=== PATIENT | female | born 1945 | race Hispanic/Latino ===

== ENCOUNTER 2019-03-14 17:04 | Emergency (ER) | payer MEDICARE ==
[~2019-03-14 17:04] MED LIST: ASPI-555 PO; CETI10CA5 PO; GLIP10TA9 PO; INSLAN SQ; LOSA50TA64 PO; METF-446 PO; MONT10TA21 PO; OMEP20CA10 PO; SIMV20TA2 PO
[2019-03-14 17:36] LABS: BASOPHILS % (AUTO) 0.5 % (0.0-5.0); EOSINOPHILS % (AUTO) 1.8 % (0.0-8.0); HEMATOCRIT 37.6 % (36-48); LYMPHOCYTES % (AUTO) 11.6 % (21.0-51.0); MEAN CORPUSCULAR HEMOGLOBIN 26.9 pg (27.0-33.0); MEAN CORPUSCULAR VOLUME 81.4 fL (79-99); MONOCYTES % (AUTO) 7.7 % (3.0-13.0); NEUTROPHILS % (AUTO) 78.4 % (40.0-77.0); NUCLEATED RED BLOOD CELLS 0.1 % (0.0-0.19); PLATELET COUNT (AUTO) 187 K/uL (130-400); RED BLOOD CELL COUNT(AUTO) 4.62 MIL/uL (4.00-5.50); RED CELL DISTRIBUTION WIDTH 17.3 % (11.0-15.5); WHITE BLOOD COUNT (AUTO) 6.5 K/uL (4.8-10.8)
[2019-03-14 17:36] LABS: APPEARANCE,URINE Clear (CLEAR); BILIRUBIN,URINE Negative (NEGATIVE); COLOR,URINE Yellow (YELLOW); GLUCOSE, URINE (UA) TRACE mg/dL (NEGATIVE); KETONES,URINE 15 mg/dL (NEGATIVE); LEUKOCYTE ESTERASE ,URINE Small (NEGATIVE); NITRATE,URINE Negative (NEGATIVE); OCCULT BLOOD,URINE Trace (NEGATIVE); PROTEIN,URINE Negative (NEGATIVE); UROBILINOGEN,URINE 0.2 mg/dL (0.2-1.0)
[2019-03-14 17:47] LABS: BACTERIA,URINE Rare /HPF (None Seen); RBC,URINE 0-1 /HPF (0-1); SQUAMOUS EPITHELIAL CELL,UR Rare /HPF (0-2); TRANSITIONAL EPI CELLS,URINE Rare /HPF (None Seen)
[2019-03-14 17:53] LABS: CREATININE 0.8 mg/dL (0.5-1.5); POTASSIUM 3.9 mmol/L (3.5-5.1)
[2019-03-14 18:00] LABS: ALBUMIN 3.3 g/dL (3.5-5.0); BILIRUBIN,TOTAL 0.4 mg/dL (0.2-1.0); TOTAL PROTEIN, SERUM 6.9 g/dL (6.0-8.3)
[2019-03-14] MEDS ORDERED: ONDANSETRON 4 MG TABLET ONE (18:21)
[2019-03-14] MEDS ORDERED: TRAMADOL HCL 50 MG TABLET ONE (18:22)
== END 2019-03-14 20:22 | disposition home or self-care (01) ==
LOC: EDH 17:04
DX: N30.00 Acute cystitis without hematuria (principal); R11.0 Nausea; J45.909 Unspecified asthma, uncomplicated; E11.9 Type 2 diabetes mellitus without complications; I10 Essential (primary) hypertension; E78.5 Hyperlipidemia, unspecified; Z88.1 Allergy status to other antibiotic agents; Z88.2 Allergy status to sulfonamides; Z86.73 Personal history of transient ischemic attack (TIA), and cerebral infarction without residual deficits; Z98.890 Other specified postprocedural states; Z79.899 Other long term (current) drug therapy
CPT/HCPCS: 36415; 74176; 80053; 81001; 85025; 99285; Q0162

== ENCOUNTER 2019-09-03 18:03 | Emergency (ER) | payer MEDICARE ==
[~2019-09-03 18:03] MED LIST changes: -OMEP20CA10 PO; +OMEP20CA12 PO
[2019-09-03] MEDS ORDERED: DEXAMETHASONE SOD PHOSPHATE 10MG/ML 1ML VIAL ONE (18:40)
[2019-09-03] MEDS ORDERED: OXYMETAZOLINE HCL SPRAY 15 ML BOTTLE ONE (18:41)
[2019-09-03] MEDS ORDERED: DiphenhydrAMINE HCL 50 MG/ML VIAL ONE (18:41)
[2019-09-03] MEDS ORDERED: KETOROLAC TROMETHAMINE 15MG/ML ONE (18:41)
[2019-09-03] MEDS ORDERED: SODIUM CHLORIDE 0.9% 1000ML 1,000 ML IV ONE (18:42)
[2019-09-03 19:19] LABS: BASOPHILS % (AUTO) 0.9 % (0.0-5.0); EOSINOPHILS % (AUTO) 0.9 % (0.0-8.0); HEMATOCRIT 39.4 % (36-48); LYMPHOCYTES % (AUTO) 22.9 % (21.0-51.0); MEAN CORPUSCULAR HEMOGLOBIN 28.8 pg (27.0-33.0); MEAN CORPUSCULAR HGB CONC 33.5 g/dL (32.0-36.0); MEAN CORPUSCULAR VOLUME 85.9 fL (79-99); MONOCYTES % (AUTO) 7.9 % (3.0-13.0); NEUTROPHILS % (AUTO) 67.4 % (40.0-77.0); PLATELET COUNT (AUTO) 205 K/uL (130-400); RED BLOOD CELL COUNT(AUTO) 4.59 MIL/uL (4.00-5.50); RED CELL DISTRIBUTION WIDTH 16.9 % (11.0-15.5); WHITE BLOOD COUNT (AUTO) 5.7 K/uL (4.8-10.8)
[2019-09-03 19:31] LABS: ALBUMIN 3.3 g/dL (3.5-5.0); BILIRUBIN,TOTAL 0.3 mg/dL (0.2-1.0); CREATININE 1.1 mg/dL (0.5-1.5); POTASSIUM 4.4 mmol/L (3.5-5.1); TOTAL PROTEIN, SERUM 7.1 g/dL (6.0-8.3)
[2019-09-03] MEDS ORDERED: INSULIN HUMULIN R 100 UNIT/ML 3ML ONE (20:11)
[2019-09-03 20:15] LABS: ABG OXYGEN SATURATION 30.9 % (95.0-99.0); BASE EXCESS,VENOUS BLOOD GAS -2.3 (-2.0-3.0); HCO3,VENOUS BLOOD GAS 23.4 (21.0-28.0); PCO2,VENOUS BLOOD GAS 43 (32-45)
== END 2019-09-03 22:50 | disposition home or self-care (01) ==
LOC: EDH 18:03
DX: E11.65 Type 2 diabetes mellitus with hyperglycemia (principal); R51 Headache; M54.2 Cervicalgia; I10 Essential (primary) hypertension; E78.5 Hyperlipidemia, unspecified; Z86.73 Personal history of transient ischemic attack (TIA), and cerebral infarction without residual deficits; Z88.2 Allergy status to sulfonamides; Z88.1 Allergy status to other antibiotic agents; Z90.49 Acquired absence of other specified parts of digestive tract; Z98.890 Other specified postprocedural states
CPT/HCPCS: 36415; 36600; 70450; 80053; 82010; 82803; 82948; 85025; 96374; 96375; 99285; J1100; J1200; J1815; J1885; J7030

== ENCOUNTER → 2022-01-01 | Outpatient (CLI) | payer MEDICARE ==
[~2022-01-01] MED LIST changes: -ASPI-555 PO; +ASPI-556 PO
== END | disposition home or self-care (01) ==
LOC: OIH 10:04
PROVIDERS: ATTEND Family Medicine
DX: M47.816 Spondylosis without myelopathy or radiculopathy, lumbar region (principal); M85.88 Other specified disorders of bone density and structure, other site; M54.10 Radiculopathy, site unspecified; Z90.49 Acquired absence of other specified parts of digestive tract; Z98.890 Other specified postprocedural states
CPT/HCPCS: 72100; 72220

== ENCOUNTER 2023-05-11 11:58 | Emergency (ER) | payer MEDICARE ==
[~2023-05-11] VITALS: Ht 154.9 cm; Wt 59.0 kg
[~2023-05-11 11:58] MED LIST changes: +AMLO-258 PO; +GLIP5TAB11 PO; -MONT10TA21 PO; -SIMV20TA2 PO; +STATIN PO; +UBID10CA6 PO
[2023-05-11 12:26] LABS: BASOPHILS # (AUTO) 0.03 K/uL (0.00-0.20); BASOPHILS % (AUTO) 0.5 % (0.0-5.0); EOSINOPHILS # (AUTO) 0.15 K/uL (0.00-0.70); EOSINOPHILS % (AUTO) 2.3 % (0.0-8.0); HEMATOCRIT 30.5 % (36-48); IMMATURE GRANULOCYTE ABSOLUTE 0.02 K/uL (0-1); LYMPHOCYTES # (AUTO) 1.5 K/uL (1.0-4.8); LYMPHOCYTES % (AUTO) 22.4 % (21.0-51.0); MEAN CORPUSCULAR HEMOGLOBIN 29.2 pg (27.0-33.0); MEAN CORPUSCULAR HGB CONC 32.8 g/dL (32.0-36.0); MEAN CORPUSCULAR VOLUME 89.2 fL (79-99); MONOCYTES # (AUTO) 0.5 K/uL (0.1-1.0); MONOCYTES % (AUTO) 8.1 % (3.0-13.0); NEUTROPHILS # (AUTO) 4.3 K/uL (1.8-7.7); NEUTROPHILS % (AUTO) 66.4 % (40.0-77.0); PLATELET COUNT (AUTO) 180 K/uL (130-400); RED BLOOD CELL COUNT(AUTO) 3.42 MIL/uL (4.00-5.50); RED CELL DISTRIBUTION WIDTH 14.4 % (11.0-15.5); WHITE BLOOD COUNT (AUTO) 6.5 K/uL (4.8-10.8)
[2023-05-11 12:44] LABS: ALBUMIN 3.1 g/dL (3.5-5.0); BILIRUBIN,TOTAL 0.7 mg/dL (0.2-1.0); CREATININE 0.7 mg/dL (0.5-1.5); POTASSIUM 3.9 mmol/L (3.5-5.1); TOTAL PROTEIN, SERUM 6.6 g/dL (6.0-8.3)
[2023-05-11 12:56] LABS: APPEARANCE,URINE CLEAR (CLEAR); BILIRUBIN,URINE NEGATIVE (NEGATIVE); COLOR,URINE LIGHT-YELLOW (YELLOW); GLUCOSE, URINE (UA) 200 mg/dL (NEGATIVE); KETONES,URINE NEGATIVE (NEGATIVE); LEUKOCYTE ESTERASE ,URINE 250 Leu/uL (NEGATIVE); NITRATE,URINE NEGATIVE (NEGATIVE); OCCULT BLOOD,URINE NEGATIVE (NEGATIVE); PH,URINE 5.5 (5.0-8.0); PROTEIN,URINE NEGATIVE (NEGATIVE); UROBILINOGEN,URINE 0.2 mg/dL (0.2-1.0)
[2023-05-11 12:58] LABS: ADD UA MICROSCOPIC YES
[2023-05-11 13:01] LABS: BACTERIA,URINE RARE /HPF (None Seen); MUCUS,URINE RARE LPF (None Seen); RBC,URINE 0-1 /HPF (0-1); SQUAMOUS EPITHELIAL CELL,UR RARE /HPF (0-2)
[2023-05-11] MEDS ORDERED: CEPH500T PO (15:17)
[2023-05-11 15:42] VITALS: BP 124/88; PULSE 64; RESP 18; O2SAT 98
== END 2023-05-11 18:00 | disposition home or self-care (01) ==
LOC: EDH 11:58
DX: N39.0 Urinary tract infection, site not specified (principal); M25.552 Pain in left hip; I10 Essential (primary) hypertension; E78.00 Pure hypercholesterolemia, unspecified; E11.9 Type 2 diabetes mellitus without complications; J45.909 Unspecified asthma, uncomplicated; Z90.49 Acquired absence of other specified parts of digestive tract; Z87.442 Personal history of urinary calculi; Z88.2 Allergy status to sulfonamides; Z88.1 Allergy status to other antibiotic agents; Z79.4 Long term (current) use of insulin; Z79.899 Other long term (current) drug therapy
CPT/HCPCS: 36415; 73502; 80053; 81001; 83605; 85025; 87088

== ENCOUNTER 2025-04-02 21:16 | Emergency (ER) | payer MEDICARE ==
[~2025-04-02] VITALS: Ht 154.9 cm; Wt 59.0 kg
[~2025-04-02 21:16] MED LIST changes: +AMLO-257 PO; -AMLO-258 PO; -GLIP10TA9 PO; -GLIP5TAB11 PO; +GLIP5TAB15 PO; +METF-444 PO; +ROSU10TA72 PO; -STATIN PO; -UBID10CA6 PO; +VALS80TA30 PO
[2025-04-02 21:18] VITALS: TEMP 98
--- NOTE | 2025-04-02 21:41 | ERN ---
General Chief Complaint: Foreign Body Stated Complaint: SOB AND FEELS FOOD STUCK IN THROAT Time Seen by MD: 21:29 History of Present Illness Initial Comments Ms. Banks is a very pleasant 79-year-old female who presents the ED after being accompanied by her family after choking on while eating an apple approximately 45 minutes prior to arrival. She reports that she was attempting to vomit and was able to expel some food material but feels the part of the apple went down the wrong pipe and still BB lodged in her chest. He denies active choking or shortness of breath she does endorse discomfort in his sensation of mucus in the throat and chest along with intermittent coughing. He is currently on a 7 day quality assurance monitor body for evaluation or possible heart murmur/arrhythmia but has no significant medical history otherwise. Allergies: Coded Allergies: Sulfa (Sulfonamide Antibiotics) (Unverified Allergy, Unknown, RASH HIVES, 10/06/14) ciprofloxacin (Unverified Allergy, Unknown, 08/12/15) Home Meds Reported Medications Rosuvastatin Calcium (Rosuvastatin Calcium) 10 Mg Tablet, 10 MG PO 2x a week, TAB 11/20/24 Amlodipine Besylate (Amlodipine Besylate) 5 Mg Tablet, 5 MG PO DAILY, TAB 11/20/24 Losartan Potassium (Losartan Potassium) 50 Mg Tablet, 1 TAB PO DAILYDINNER for 30 Days, #30 TAB 0 Refills 11/20/24 Glipizide (Glipizide) 5 Mg Tablet, 1 TAB PO DAILY for 30 Days, #60 TAB 0 Refills 11/20/24 Metformin HCl (Metformin HCl) 500 Mg Tablet, 1 TAB PO DAILYDINNER for 30 Days, #60 TAB 0 Refills 11/20/24 Metformin HCl (Metformin HCl) 1,000 Mg Tablet, 1 TAB PO DAILYBKFST for 30 Days, #60 TAB 0 Refills 11/20/24 Valsartan (Valsartan) 80 Mg Tablet, 1 TAB PO DAILY for 30 Days, #30 TAB 0 Refills 11/20/24 Cetirizine HCl (Zyrtec) 10 Mg Capsule, 10 MG PO DAILY, CAP 10/06/14 Insulin Glargine,Hum.rec.anlog (Lantus) 100 Units/Ml Inj, 16 UNITS SQ HS, ML 10/06/14 Omeprazole (Omeprazole) 20 Mg Capsule.dr, 20 MG PO DAILY, CAP 10/06/14 Aspirin (Aspir 81) 81 Mg Tablet.dr, 81 MG PO DAILY, TAB 10/06/14 Past Medical History Past Medical History: Diabetes-Type II Past Surgical History: Surgical History Other: RT ARM, KIDNEY STONES Female( History) History: Not Applicable ROS Dictation Constitutional: Negative for fever,chills, and weight loss Eyes: Negative for injury, pain,redness, and discharge ENT: Throat discomfort, excessive mucus no abdominal aphasia Cardiovascular: Negative for chest pain, palpitations, and edema Respiratory: Negative for shortness of breath, cough, and wheezing, Abdomen/GI: Negative for abdominal pain, nausea, vomiting, diarrhea, and constipation Back: Negative for injury and pain : Negative for injury, bleeding and discharge MS/Extremity: Negative for injury and deformity Skin: Negative for rash, and discoloration Neuro: Negative for headache, weakness, numbness, tingling, and seizure Psych: Negative for suicide ideation, homicidal ideation, and hallucinations Physical Exam Physical Exam Dictation General: awake, alert, NAD: Able to speak in full sentences Head/Face: Normocephalic, atraumatic Eyes: PERRL, EOMI, vision at baseline ENT: oral cavity clear, TMs clear, no signs of infection, no visible foreign body Neck: Trachea midline, supple, no nuchal rigidity Cardiovascular: RRR, normal S1/S2, No MRGs, no JVD Respiratory: CTAB, no respiratory distress, No rales or wheezes Abdomen: Soft, non-tender, non-distended, normal bowel sounds, no guarding or rebound. Skin: Warm, dry, normal turgor, no rash MS/Extremity: Pulses equal, no cyanosis Neuro: COAx4, GCS 15, strength 5/5, CN 2-12 intact Psych: Normal behavior, mood, and affect normal MDM Patient's CT of her neck and chest shows no acute foreign body. Patient does time feel much better and is able to breathe without any issue. MDM: Differential diagnosis: Noncardiac chest pain, choking Rationale: Tests considered and ordered secondary to shared decision making in clude: Previous outside records reviewed: Old ER visits. Risk of complication and/or morbidity or mortality of patient management: None Medications-Per medication reconciliation Need for hospitalization: Patient does not meet criteria for hospitalization. Need for emergency major/minor surgery: No There are no social concerns with this patient. Prescription drug management Prescriptions will include symptomatic care Patient's prior external medical records from other ER visits were reviewed by me as indicated. Prior testing and results from previous visits were reviewed. Prior tests were taken into account with medical decision making and resource utilization, independent historian/historians were used to obtain complete medical history. I independently interpreted the test that were performed, results were reviewed by me and considered findings on radiology if ordered. Medical management and examination interpretation discussions were had by me with other qualified healthcare professionals as indicated for the patient's care. ED Course Orders Procedure Category Date Status Time Ct Neck Soft Tiss W/O CT 04/02/25 Resulted Contrast 21:37 Ct Chest W/O Contrast CT 04/02/25 Resulted 21:37 Vital Signs Date Time Temp Pulse Resp B/P (MAP) Pulse Ox O2 Delivery O2 Flow Rate FiO2 04/03/25 00:19 58 18 133/56 98 Room Air* 0 21 04/02/25 22:00 64 18 132/50 98 Room Air* 0 21 04/02/25 21:18 98.1 76 19 157/90 98 Room Air 0 DX & DISP Disposition: Discharge Departure Impression: Primary Impression: Choking due to food (regurgitated) Condition: Stable Additional Instructions: Please follow up with your primary care physician as needed. Your imaging did not show any food material in your windpipe. Please make sure you to your food carefully and diligently. If you have worsening cough congestion or mucus production please come back to emergency department Referrals: ALO COLBERT MD (PCP) MAXIMINO BEAVERS MD Apr 02, 2025 21:41
--- NOTE | 2025-04-03 00:46 | HMCIMG ---
EXAM: Non-contrast CT examination of the chest. CLINICAL HISTORY: Foreign body. TECHNIQUE: Thin collimated axial CT images of the chest were obtained, and sagittal and coronal reformatted images were also submitted. A CT scan is done according to ALARA (As Low as Reasonably Achievable). CONTRAST USED: None. COMPARISON: None provided. FINDINGS: Subsegmental atelectasis in both the lower lobes and in the anterior segment of the right upper lobe. There are a few small 2-3 mm calcified granulomas bilaterally. 0.2 cm left upper lobe pulmonary nodule (series 3, image 20). 0.2 cm left lower lobe pulmonary nodule (series 3, image 42). Tracheal and bronchial wall calcifications. No pleural effusions. No pericardial effusion. The heart size is within normal limits. Coronary vessels and intrathoracic aorta show patchy atherosclerotic calcifications. No axillary, supraclavicular, or mediastinal lymphadenopathy. Calcified lymph node in the right hilum Limited views of the upper abdomen demonstrate a low-attenuation left adrenal nodule that is statistically most likely to reflect an adrenal nodule; however, this would be better characterized with CT or MR imaging with adrenal protocol on a nonemergent basis. No acute or suspicious osseous abnormality. Thoracic spondylosis. IMPRESSION: No radiodense foreign body within the esophagus or tracheobronchial tree. Lung nodules as described. Lung-RADS Category 2: Continue annual screening with LDCT. Subsegmental atelectasis in both the lower lobes and in the anterior segment of the right upper lobe. /[place]
--- NOTE | 2025-04-03 00:48 | HMCIMG ---
EXAMINATION: CT Neck Without IV Contrast CLINICAL HISTORY: Patient presents with concern for foreign body. TECHNIQUE: Axial computed tomography images of the neck without intravenous contrast. Sagittal and coronal reformatted images were generated. CONTRAST: None. COMPARISON: None provided. FINDINGS: PHARYNX: The nasopharynx, oropharynx, and hypopharynx are unremarkable. No pharyngeal mucosal-based lesions. LARYNX: The larynx is unremarkable. Normal epiglottis. RETROPHARYNGEAL SPACE: No retropharyngeal soft tissue swelling or gas. SALIVARY GLANDS: The parotid, submandibular, and sublingual glands are unremarkable. LYMPH NODES: No lymphadenopathy. THYROID: The thyroid gland is unremarkable. No nodule. BONES: No acute osseous abnormality. Metallic streak artifacts from dental implants limit evaluation. ADDITIONAL FINDINGS: No obvious foreign body identified in the visualized extent. Minimal circumferential wall thickening within the non-distended proximal thoracic esophagus, with a maximum wall thickness of approximately 0.4 cm. Mucosal thickening in the right maxillary sinus. Atheromatous calcifications in the visualized aorta. Surgical justina in the mediastinum. Calcified nodule measuring 0.3 cm in the left upper lobe. Non-calcified nodule measuring 0.2 cm in the right upper lobe (series 2, image 62). IMPRESSION: No radiopaque foreign body identified. Minimal circumferential thickening of the proximal thoracic esophagus; clinical correlation recommended. Mucosal thickening in the right maxillary sinus. Pulmonary nodules in the upper lobes, including a 0.3 cm calcified left upper lobe nodule and a 0.2 cm right upper lobe nodule. Post-surgical changes with mediastinal surgical justina. /[place]
[2025-04-03 01:21] VITALS: BP 115/45; PULSE 56; RESP 18; O2SAT 98
== END 2025-04-03 01:43 | disposition home or self-care (01) ==
LOC: EDH 21:16
DX: T17.228A Food in pharynx causing other injury, initial encounter (principal); E11.9 Type 2 diabetes mellitus without complications; Z79.82 Long term (current) use of aspirin; Z79.84 Long term (current) use of oral hypoglycemic drugs; Z79.899 Other long term (current) drug therapy; Z88.1 Allergy status to other antibiotic agents; Z88.2 Allergy status to sulfonamides; Z98.890 Other specified postprocedural states; W44.F3XA Food entering into or through a natural orifice, initial encounter; Y93.89 Activity, other specified; Y92.89 Other specified places as the place of occurrence of the external cause; Y99.8 Other external cause status
CPT/HCPCS: 70490; 71250; 99284

== ENCOUNTER 2025-05-03 05:49 | Day surgery (SDC) | payer MEDICARE ==
[2025-04-30 12:16] LABS: IMMATURE GRANULOCYTE ABSOLUTE 0.02 K/uL (0-1); NUCLEATED RED BLOOD CELLS 0.0 % (0.0-0.19); PLATELET COUNT (AUTO) 181 K/uL (130-400); RED BLOOD CELL COUNT(AUTO) 4.41 MIL/uL (4.00-5.50); RED CELL DISTRIBUTION WIDTH 12.7 % (11.0-15.5); WHITE BLOOD COUNT (AUTO) 6.6 K/uL (4.8-10.8)
[2025-04-30 12:24] VITALS: BP 180/92; PULSE 65; RESP 18; TEMP 97.6
[2025-04-30 12:25] LABS: CREATININE 0.6 mg/dL (0.5-1.0); GLOMERULAR FILTR. RATE CALC 90.0 mL/min (>90); GLUCOSE,RANDOM 144.0 mg/dL (70-105); SODIUM SERUM 141.0 mmol/L (136-145); UREA NITROGEN, BLOOD 10.0 mg/dL (7-18)
[2025-04-30 12:29] LABS: INR 0.99 (0.85-1.15)
--- NOTE | 2025-04-30 12:29 | EKG ---
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
[2025-04-30 12:30] LABS: ADD UA MICROSCOPIC YES; APPEARANCE,URINE HAZY (CLEAR); GLUCOSE, URINE (UA) 30 mg/dL (NEGATIVE); LEUKOCYTE ESTERASE ,URINE 500 Leu/uL (NEGATIVE); NITRATE,URINE NEGATIVE (NEGATIVE); OCCULT BLOOD,URINE +- (TRACE) (NEGATIVE)
[2025-04-30 12:33] LABS: SQUAMOUS EPITHELIAL CELL,UR RARE /HPF (0-2)
--- NOTE | 2025-04-30 14:04 | HMCIMG ---
EXAM: CR Chest, 1 View. CLINICAL HISTORY: PRE OP COMPARISON: 11/19/24 22:06 EST CR - CHEST 1VW FINDINGS: Surgical clips projecting over the left lung apex. LUNGS: The lungs show no infiltrate or other acute finding. PLEURAL SPACES: No evidence of pleural effusion or pneumothorax. MEDIASTINUM: The cardiomediastinal silhouette is within normal limits. BONES: No acute osseous abnormality. IMPRESSION: No acute cardiopulmonary pathology is evident. /[place]
--- NOTE | 2025-04-30 15:48 | NUR ---
report reported ua/wbc and urine culture still pending to dr grissom. wants to be reminded in am of results and follow up with urine culture for proper treatment,
[2025-05-03] VITALS (10 sets, daily range): BP systolic 116–182; BP diastolic 44–91; PULSE 56–67; RESP 16–18; TEMP 97.3–97.6
[~2025-05-03] VITALS: Ht 154.9 cm; Wt 60.2 kg
[~2025-05-03 05:49] MED LIST changes: +ACET-2247 PO; +ALBUHFA IH; +DICY10SO PO; +GLIP10TA16 PO; -LOSA50TA64 PO; -ROSU10TA72 PO
--- NOTE | 2025-05-03 07:02 | NUR ---
dr grissom made aware of pt having a fall saturday evening and UTI results pt stated her leg gave out due to uneven sidewalk and she fell face foward has bruise to knee right pain to both knees and bruise to palm of hand and a cut scabbed to lower lip of mouth states no loc no other c/o per pt , pt denies any s/s of uti states she always has frequent urination due to her DM, per dr grissom will continue with scheduled procedure and will order antibiotics for uti in laboratory secretary . laboratory secretary made aware
[2025-05-03] MEDS ORDERED: HEParin-NS 1,000 UNIT/500 ML 1,000 ML IV ONE (07:11)
[2025-05-03] MEDS ORDERED: LIDOCAINE HCL 400MG/20ML VIAL ONE (07:11)
[2025-05-03] MEDS ORDERED: SODIUM BICARB 50MEQ 50ML VIAL 50 ML ONE (07:11)
[2025-05-03] MEDS ORDERED: IOHEXOL 350 MG/ML 100ML INFUS..BTL IV ONE (07:12)
[2025-05-03] MEDS: 0.9%NACL 1000ML 1,000 ML IV ONE (07:13)
[2025-05-03] MEDS ORDERED: IOHEXOL-350 50ML VIAL IV ONE (07:13)
[2025-05-03] MEDS ORDERED: NITROGLYCERIN 50MG VIAL ONE (07:16)
[2025-05-03] MEDS ORDERED: MIDAZOLAM HCL 1 MG/ML 2ML VIAL ONE (07:26)
[2025-05-03] MEDS ORDERED: NITR50CA PO (08:59)
[2025-05-03] MEDS ORDERED: GLUCAGON 1MG KIT 1 MG ML IM PRN (09:00)
[2025-05-03] MEDS ORDERED: 0.9%NACL 1000ML 1,000 ML IV SCH (09:00)
[2025-05-03] MEDS ORDERED: DEXTROSE 50%-WATER 50 ML DISP.SYRIN IV PRN (09:00)
--- NOTE | 2025-05-03 09:06 | PRN ---
Left Heart Catheterization, Coronary Arteriogram And IFR LAD Indication: Coronary calcification with multiple arrhythmias, possible ischemic presentation. Technique: Under local anesthesia with 1% lidocaine using ultrasound guidance right radial access was gained but we could not advance a guidewire to the elbow and had poor runoff through the sheath. An angiogram was obtained and it demonstrated either diffuse disease in the proximal radial artery or diffuse spasm. We aborted the radial approach and under fluoroscopic and ultrasound guidance with 1% lidocaine anesthesia accessed the right common femoral, punctur ing only the anterior wall of the vessel and inserted a six German sheath. Selective left and right coronary arteriogram were obtained with six German 4 cm left and right Cayden catheters and we exchanged for a six German angled pigtail and cannulated the left ventricle. Left ventricular cineangiography was performed in BAKER projection. We then exchanged for a six German FL 4 guide and calibrated an IFR wire, then crossed the proximal and mid LAD disease. IFR was 0.94 so the apparatus was withdrawn and no further investigation or intervention was attempted. Right radial access was controlled with a Terumo band and right femoral access was controlled and with Perclose, with excellent hemostasis at both sites and no complications. Results: Hemodynamics: LVEDP was 20 before ventriculography and 30 after. LV systolic pressure was 172 with aortic root pressure 176/49, mean 109. Ventriculography: Left ventricular cineangiography demonstrated normal left ventricular size, geometry, wall motion and ejection fraction is 70%. Mitral valve is competent. Arteriography: This is a right-dominant system. The right coronary supplies the posterior descending and two posterolateral and is notable only for mild 10% stenosis proximal to the right ventricular marginal. The left main is free of disease. The left circumflex supplies a 1st obtuse marginal and an inferolateral branch. The 1st obtuse marginal is nearby 60% at its ostium. The left anterior descending is notable for a 30-60% stenosis at its ostium, depending on the projection analyzed. After the 1st diagonal there is a 20% narrowing. IFR: IFR across the proximal and mid LAD lesions is 0.94, not significant. Conclusions: Patient does have diastolic failure and nonobstructive two-vessel coronary disease but does not require intervention at this time. GAVINO FISHMAN MD May 03, 2025 09:06
== END 2025-05-03 13:09 | disposition home or self-care (01) ==
LOC: DAH 05:49
PROVIDERS: ATTEND Internal Medicine Cardiovascular Disease
DX: I47.29 Other ventricular tachycardia (principal); R55 Syncope and collapse; I25.84 Coronary atherosclerosis due to calcified coronary lesion; I25.10 Atherosclerotic heart disease of native coronary artery without angina pectoris; I11.0 Hypertensive heart disease with heart failure; I50.32 Chronic diastolic (congestive) heart failure; E78.5 Hyperlipidemia, unspecified; J45.909 Unspecified asthma, uncomplicated; E11.59 Type 2 diabetes mellitus with other circulatory complications; I48.92 Unspecified atrial flutter; Z86.73 Personal history of transient ischemic attack (TIA), and cerebral infarction without residual deficits; Z79.4 Long term (current) use of insulin; Z88.1 Allergy status to other antibiotic agents; Z88.2 Allergy status to sulfonamides; Z79.82 Long term (current) use of aspirin; Z79.899 Other long term (current) drug therapy; Z90.49 Acquired absence of other specified parts of digestive tract; Z98.890 Other specified postprocedural states
CPT/HCPCS: 80048; 83880; 85025; 85610; 85730; 87086 ×2; 87186; 81001; 36415; 71045; 93005; 93458; 93571; 99156; 99157 ×2; 82948 ×2; C1887; C1894 ×3; C1769 ×2; C1760; J3010; J3490 ×4; J7030; J1644 ×2; J2250; Q9967 ×2; A4215; A4222; A4221; A4663; A4216; A4606; Q9965; A4223 ×3

== ENCOUNTER 2025-07-22 23:41 | Emergency (ER) | payer MEDICARE ==
[~2025-07-22] VITALS: Ht 154.9 cm; Wt 59.0 kg
[~2025-07-22 23:41] MED LIST changes: +NITR50CA PO
--- NOTE | 2025-07-22 23:48 | ERN ---
ED Note History of Present Illness Stated Complaint: RT ARM PAIN Chief Complaint: Upper Extremity Pain/Injury Time Seen by MD: 23:43 Dictation: PATIENT IS AN 80-YEAR-OLD FEMALE HERE WITH HER GRANDDAUGHTER WITH COMPLAINTS OF NON TRAUMA LEFT ELBOW PAIN ONSET THIS AFTERNOON. SHE STATES SHE HAS HAS A HISTORY OF A PRIOR FALL AND INJURY WITH SCREWS TO THE TAILBONE 20 YEARS AGO. SHE STATES SHE HAS BEEN LIFTING A LOT AND MOVING OUT OF HER HOME THIS AFTERNOON AND ALSO WHEN [employer] WAS LIFTING HER GROCERIES. STATES THE PAIN HAS GOTTEN PROGRESSIVELY WORSE. NO FEVER NO CHILLS SHE TOOK TYLENOL WITHOUT RELIEF. Allergies: Coded Allergies: Sulfa (Sulfonamide Antibiotics) (Unverified Allergy, Unknown, RASH HIVES, 10/06/14) ciprofloxacin (Unverified Allergy, Unknown, 08/12/15) Home Meds Active Scripts Nitrofurantoin Macrocrystal (Nitrofurantoin) 50 Mg Capsule, 50 MG PO [id number], #20 CAP Prov:GAVINO FISHMAN MD 05/03/25 Reported Medications Glipizide (Glipizide) 10 Mg Tablet, 10 MG PO AM, TAB 04/30/25 Glipizide (Glipizide) 5 Mg Tablet, 5 MG PO HS, TAB 04/30/25 Dicyclomine HCl (Dicyclomine HCl) 10 Mg/5 Ml (5 Ml) Solution, 10 MG PO TID, ML 04/30/25 Albuterol Sulfate (Ventolin Hfa/Proventil Hfa/Proair Hfa) 90 Mcg Puff, 90 MCG IH AD, INHALER 04/30/25 Acetaminophen (Tylenol) 325 Mg Tablet, 650 MG PO AD, TAB 04/30/25 Amlodipine Besylate (Amlodipine Besylate) 5 Mg Tablet, 5 MG PO DAILY, TAB 11/20/24 Metformin HCl (Metformin HCl) 500 Mg Tablet, 1 TAB PO DAILYDINNER for 30 Days, #60 TAB 0 Refills 11/20/24 Metformin HCl (Metformin HCl) 1,000 Mg Tablet, 1 TAB PO DAILYBKFST for 30 Days, #60 TAB 0 Refills 11/20/24 Valsartan (Valsartan) 80 Mg Tablet, 1 TAB PO DAILY for 30 Days, #30 TAB 0 Refills 11/20/24 Cetirizine HCl (Zyrtec) 10 Mg Capsule, 10 MG PO DAILY, CAP 10/06/14 Insulin Glargine,Hum.rec.anlog (Lantus) 100 Units/Ml Inj, 16 UNITS SQ HS, ML 10/06/14 Omeprazole (Omeprazole) 20 Mg Capsule.dr, 20 MG PO DAILY, CAP 10/06/14 Aspirin (Aspir 81) 81 Mg Tablet.dr, 81 MG PO DAILY, TAB 10/06/14 Past Medical History Past Medical History: Diabetes-Type II Surgical History: Surgical History Other: RT ARM, KIDNEY STONES History: Not Applicable RN Note Reviewed/Agreed w/PFSH: Yes Review of System Dictation CONSTITUTIONAL: NEGATIVE EXCEPT FOR HPI HEAD/FACE: NEGATIVE EXCEPT FOR HPI EENT: NEGATIVE EXCEPT FOR HPI RESPIRATORY: NEGATIVE EXCEPT FOR HPI GASTROINTESTINAL/ABDOMINAL: NEGATIVE EXCEPT FOR HPI GENITOURINARY: NEGATIVE EXCEPT FOR HPI MUSCULOSKELETAL: NEGATIVE EXCEPT FOR HP RIGHT ELBOW PAIN INTEGUMENTARY: NEGATIVE EXCEPT FOR HPI NEUROLOGICAL/PSYCH: NEGATIVE EXCEPT FOR HPI HEMATOLOGIC/LYMPHATIC: NEGATIVE EXCEPT FOR HPI ALL SYSTEMS NEGATIVE, EXCEPT NOTED ABOVE. 13 POINT REVIEW OF SYSTEMS ASSESSED AND ALL NEGATIVE EXCEPT FOR ABOVE. Initial Vital Sign VS Vital Signs Date Time Temp Pulse Resp B/P (MAP) Pulse Ox O2 Delivery O2 Flow Rate FiO2 07/22/25 23:43 97.9 68 20 160/50 98 Room Air Physical Exam Dictation VITAL SIGNS REVIEWED GENERAL APPEARANCE: ALERT, ORIENTED X 3, MODERATE ACUTE DISTRESS, WELL DEVELOPED, NOURISHED. HEAD AND FACE: NON-TRAUMATIC. EYES: PERRL, PINK CONJUNCTIVAS, EYELID NO TRAUMA, ANTERIOR CHAMBER WITH ARCUS SENILIS. EARS: PINNAS INTACT AND NO SIGNS OF TRAUMA OR ERYTHEMA EAR CANALS CLEAR AND NO DISCHARGE TM NO ERYTHEMA NOSE: NO DISCHARGE, NO BLEEDING. OROPHARYNX: MOUTH NORMAL, TONGUE PINK, PHARYNX CLEAR,NO ERYTHEMA, TONSILS NO EXUDATES, NO ABSCESSES NOTED, MUCOUS MEMBRANE MOIST NECK: SUPPLE, NON-TENDER, NO THYROMEGALY, NO MASSES, NO JVD, NO BRUITS BREAST:DEFERRED CHEST:NO TENDERNESS, NO CREPITUS, NO PARADOXICAL MOVEMENT, NO RETRACTIONS LUNGS:CLEAR, WELL-VENTILATED, SYMMETRIC, NO RALES, NO WHEEZING, NO RHONCHI, NO STRIDOR, GOOD BREATH SOUNDS BILATERALLY HEART: REGULAR RATE, REGULAR RHYTHM, NO MURMUR, NO GALLOPS VASCULAR: NO PERIPHERAL EDEMA, ABDOMEN: SOFT, POSITIVE BOWEL SOUNDS, NONDISTENDED, NO GUARDING, NONTENDER, NO REBOUND, NO MASSES NO HEPATOMEGALY, NO SPLENOMEGALY, NO GEE'S SIGN, NO HERNIAS. RECTAL: DEFERRED GENITAL: DEFERRED NEUROLOGICAL: NORMAL SPEECH, MOTOR FUNCTION INTACT, SENSORY FUNCTION INTACT MUSCULOSKELETAL: NECK NONTENDER, FULL RANGE OF MOTION, BACK NONTENDER, FULL RANGE OF MOTION, EXTREMITIES: TENDERNESS WITH DECREASED RANGE OF MOTION SECONDARY TO PAIN RIGHT ELBOW. NO INFLAMMATION NO BURSITIS SKIN: COLOR PINK, DRY, NO TURGOR, NO RASH, NO LACERATIONS, NO ABRASIONS, NO CONTUSIONS. LYMPHATIC: DEFERRED Results (Laboratory/Radiology) Laboratory/Radiology 0030/RIGHT ELBOW X-RAY DEMONSTRATES PRIOR SURGERY WITH SCREWS IN PLACE NO FRACTURE NO FAT PAD SIGN Labs Reviewed?: Yes ED Course ED Course Orders Procedure Category Date Status Time Dexamethasone 4mg/Ml PHA 07/23/25 Complete 1ml Vial (Dexametha 00:00 Acetaminophen With PHA 07/23/25 Complete Codeine (Tylenol-Code 00:00 Elbow Comp 3+Vws Rt RAD 07/22/25 Taken 23:46 Current Medications Medications (Trade) Dose Ordered Sig/Nancy Route PRN Reason Start Time Stop Time Status Last Admin Dose Admin Acetaminophen/ Codeine Phosphate (TYLenol-coDEINE TAB) 2 tab ONCE ONCE PO 07/23/25 00:00 07/23/25 00:07 DC 07/23/25 00:22 Dexamethasone Sodium Phosphate (dexaMETHasone 4MG/ML 1ML VIAL) 8 mg ONCE ONCE IM 07/23/25 00:00 07/23/25 00:07 DC Vital Signs Date Time Temp Pulse Resp B/P (MAP) Pulse Ox O2 Delivery O2 Flow Rate FiO2 07/22/25 23:43 97.9 68 20 160/50 98 Room Air 0030/DIAGNOSIS WE WILL BE RIGHT ELBOW STRAIN PATIENT PRESCRIBED IBUPROFEN TOLD TO SEE HER PRIMARY CARE DOCTOR LIFTING RESTRICTIONS GIVEN Medical Decision Making MDM MEDICAL DECISION-MAKING WAS BASED ON HPI AND X-RAY OF RIGHT ELBOW NO ACUTE FINDINGS ON RIGHT ELBOW ACCEPT PRIOR SURGERY WITH SURGICAL SCREWS INTACT DIAGNOSIS WE WILL BE ELBOW STRAIN PATIENT DISCHARGED HOME WITH A IBUPROFEN TOLD SEE HER PRIMARY CARE DOCTOR IN 1-2 DAYS NO LIFTING MORE THAN 10 LB UNTIL CLEARED BY HER DOCTOR ORTHOPEDIC SURGEON DX & DISP Disposition: Discharge Departure Impression: Primary Impression: Strain of right elbow and forearm Condition: Stable Scripts Acetaminophen with Codeine (Acetaminophen-Cod #3 Tablet) 300 Mg-30 Mg Tablet 1 TAB PO Q4H PRN for MODERATE TO SEVERE PAIN, #10 TAB 0 Refills Prov: JOE RAUSCH 07/23/25 Additional Instructions: Follow-up with primary care provider in 1 to 2 days. Take medications as directed here in the emergency room. Okay to continue home medications unless otherwise discussed during your visit in the emergency room today. Return to your nearest emergency room if symptoms worsen or if there is no improvement. Call 911 if you need immediate assistance. Take Tylenol or Motrin [id number] as needed and if no contraindications are present. Increase oral hydration. A wound culture or urine culture was ordered here in the emergency room department please follow-up with primary care provider and advise them to get repeat ports from our facility. If you had any Markus wrap/splints that were applied here, please do not remove them until you see your primary care or specialty. Warm compresses to right elbow to three to 4 times a day. Take Tylenol with codeine as directed for severe pain. No lifting more than 5 lb to right arm until cleared by orthopedic surgeon, call for an appointment tomorrow. Referrals: ALO COLBERT MD (PCP) JESIKA CORLEY MD Time of Disposition: 00:31 I have reviewed the case, and I agree with, Diagnosis and Plan JOE RAUSCH Jul 22, 2025 23:48
[2025-07-23] MEDS ORDERED: ACET-2079 PO (00:32)
--- NOTE | 2025-07-23 01:25 | HMCIMG ---
EXAM: CR Right Elbow, 2 views. CLINICAL HISTORY: Trauma. COMPARISON: None provided. FINDINGS: Age-indeterminate fracture around the lateral aspect of the radial head. There are 2 fixating screws within the radial head. Moderate elbow joint effusion with mild diffuse soft tissue swelling. The remaining bones and joints are within normal limits. IMPRESSION: Age-indeterminate fracture around the lateral aspect of the radial head. There are 2 fixating screws within the radial head. Moderate elbow joint effusion with mild diffuse soft tissue swelling. /[place]
--- NOTE | 2025-07-23 01:41 | NUR ---
PT SITTING IN LOBBY WITH FAMILY GOOD EVEN CHEST RISE AND FALL OBSERVED. INETERACTING WELL WITH FAMILY
[2025-07-23 02:31] VITALS: BP 140/61; PULSE 62; RESP 18; TEMP 98.2; O2SAT 97
== END 2025-07-23 02:32 | disposition home or self-care (01) ==
LOC: EDH 23:41
DX: S56.911A Strain of unspecified muscles, fascia and tendons at forearm level, right arm, initial encounter (principal); E11.9 Type 2 diabetes mellitus without complications; Z79.82 Long term (current) use of aspirin; Z79.899 Other long term (current) drug therapy; Z87.442 Personal history of urinary calculi; Z88.1 Allergy status to other antibiotic agents; Z88.2 Allergy status to sulfonamides; X58.XXXA Exposure to other specified factors, initial encounter; Y93.89 Activity, other specified; Y92.89 Other specified places as the place of occurrence of the external cause; Y99.8 Other external cause status
CPT/HCPCS: 99284; 73080; 96372; J1100